=== PATIENT | male | born 1995 | race Caucasian/White ===

== ENCOUNTER 2016-12-16 20:40 | Inpatient (IN) | payer BC, OTHER ==
[~2016-12-16] VITALS: Ht 182.9 cm; Wt 99.8 kg
[2016-12-16] MEDS ORDERED: MIRALAX 17 GM POWD.PACK PO PRN (22:15)
[2016-12-16] MEDS ORDERED: LORAZEPAM 2 MG/1 ML VIAL IM PRN (22:15)
[2016-12-16] MEDS ORDERED: ONDANSETRON 4 MG/2 ML VIAL IM PRN (22:15)
[2016-12-16] MEDS ORDERED: MAGNESIUM HYDROXIDE 30 ML LIQUID UDC PO PRN (22:15)
[2016-12-16] MEDS ORDERED: ACETAMINOPHEN 325 MG TABLET PO PRN (22:15)
[2016-12-16] MEDS ORDERED: LOPERAMIDE HCL 2 MG CAPSULE PO PRN ×2 (22:15)
[2016-12-16] MEDS ORDERED: LORAZEPAM 1 MG TABLET PO PRN ×2 (22:15)
[2016-12-16] MEDS ORDERED: MAG HYDROX/AL HYDROX/SIMETH 30 ML LIQUID UDC PO PRN (22:15)
[2016-12-16] MEDS ORDERED: THIAMINE HCL 200 MG/2 ML VIAL IM ONE (22:15)
[2016-12-16] MEDS ORDERED: ONDANSETRON ODT 4 MG TAB.RAPDIS SL PRN (22:15)
--- NOTE | 2016-12-16 22:30 | NUR ---
Intake Notes Px is a 21 y/o male, seen at intake, AAOx4, no SOB. Px appears anxious, depressed and withdrawn. Discussed with patient the admission policies of the unit. Patient is coherent and able to respond to questions appropriately. Px has NKA, and on regular diet. Px is ambulatory with steady gait. Vital signs taken and as follows: BP: 146/78, P: 117, R: 18, O2: 95%, T: 97.3. Px has mild H/A. Px verbalized understanding of instructions and teachings regarding disposal of narcotic and other controlled home medications, unit protocols such as taking of vital signs Q4H and handling and disposal of contraband. We'll continue with admission upon pxs arrival on the unit.
--- NOTE | 2016-12-16 23:00 | NUR ---
Admission Notes Px is a 21 y/o male admitted on 12/16/16 for ETOH dependence, arrived on the unit at 2241. Skin assessment done, no contraband found and skin is intact. Just a few pimple like papules on chest. Px has NKA, denies history of seizures. Px was able to provide UDS. Upon admission CIWA 10, BP: 150/89, P: 106, R: 18, O2: 95%, T: 98.2, PA: 0. Weight 220, height 6 feet. Px reports he does not have a PCP, smokes 1 pack of cigarettes daily. Had a surgical operation on sinus area, 3 weeks ago ( deviated septum). Px is able to understand and respond to all questions pertaining to his hospitalization. Substance Abuse History is as follows: 1. ETOH- Vodka 750 ml daily for 3 weeks, started drinking since 13 y/o. Last drink was 12/16/2016 Treatment history: 1. [place]- June 2015, 2. [place] February 2016 3. [place] April 2016 Pxs longest sober period was 3 months from August to November 2016. PMHx: Anxiety, depression, Narcolepsy, HTN, ear infection, and eating disorder. Px denies any hx of seizures. Upon assessment, px is AAOx4, but moderately intoxicated, presents with anxiety, depression, withdrawn and skin is flushed. Respirations are even and unlabored. Denies SOB and chest pain. Bowel sounds active x 4, abdomen soft. PERRLA. Skin intact, no open wounds noted. Px denies SI/HI. Educational information provided and left at bedside. Px oriented to room and encouraged to notify staff with any concerns. Safety measures in place. Call light within reach, side rails up x 2, bed locked and in low position. We'll continue to monitor.
[2016-12-16] MEDS ORDERED: LORAZEPAM 1 MG TABLET PO ONE (23:50)
--- NOTE | 2016-12-16 23:50 | NUR ---
Ativan Non-admin Px is moderately intoxicated. Anxiety is on the mild to moderate side. Last intake of Vodka 750 ml is at 2200, today 12/16/2016. Ativan is not given. We'll continue to monitor. Addendum: 12/17/16 at 0234 by BONIFACIO JEFFRIES RN % ethyl alcohol is .25
[2016-12-17] VITALS (7 sets, daily range): BP systolic 113–147; BP diastolic 60–96
[2016-12-17] MEDS ORDERED: FLUT16SP BNOSTRILS (00:02)
[2016-12-17] MEDS ORDERED: VENL150C58 PO (00:02)
[2016-12-17] MEDS ORDERED: GABA600T2 PO (00:02)
--- NOTE | 2016-12-17 00:17 | NUR ---
PRN Zofran Px complained of nausea without emesis. Zofran 4 mg/ tab, 1 tab given PO as PRN med. Nausea improved after 30 mins of administration of med. We'll continue to monitor.
[2016-12-17 00:24] LABS: BASOPHILS # (AUTO) 0.1 K/uL (0.0-8.0); BASOPHILS % (AUTO) 0.9 % (0.0-2.0); EOSINOPHILS # (AUTO) 0.2 K/uL (0.0-0.7); EOSINOPHILS % (AUTO) 2.2 % (0.0-7.0); LYMPHOCYTES # (AUTO) 2.7 K/UL (0.8-4.8); LYMPHOCYTES % (AUTO) 31.1 % (20.5-51.5); MEAN CORPUSCULAR HEMOGLOBIN 29.8 UUG (27.0-31.0); MEAN CORPUSCULAR HGB CONC 33 g/dL (32.0-37.0); MEAN CORPUSCULAR VOLUME 89.5 FL (82.0-92.0); MONOCYTES # (AUTO) 0.4 K/UL (0.1-1.30); MONOCYTES % (AUTO) 4.6 % (0.0-11.0); NEUTROPHILS # (AUTO) 5.3 K/UL (1.8-8.9); NEUTROPHILS % (AUTO) 61.2 % (38.5-71.5); PLATELET COUNT (AUTO) 391 K/UL (150-450); WHITE BLOOD COUNT (AUTO) 8.7 K/UL (4.0-11.2)
[2016-12-17] MEDS ORDERED: ONDANSETRON ODT 4 MG TAB.RAPDIS ONE (00:29)
[2016-12-17 00:34] LABS: *AMPHETAMINE, URINE NEGATIVE (NEGATIVE); *BARBITURATE, URINE NEGATIVE (NEGATIVE); *CANNABINOID, URINE NEGATIVE (NEGATIVE); *COCCAINE, URINE NEGATIVE (NEGATIVE); *OPIATE, URINE NEGATIVE (NEGATIVE); *PHENCYCLIDINE SCREEN,URINE NEGATIVE (NEGATIVE)
[2016-12-17 00:45] LABS: BILIRUBIN,TOTAL 0.2 mg/dL (0.2-1.0); CREATININE 0.8 mg/dL (0.6-1.3); MAGNESIUM 1.9 mg/dL (1.8-2.4); POTASSIUM 3.6 mmol/L (3.5-5.1); TOTAL PROTEIN, SERUM 8.2 g/dL (6.4-8.2)
--- NOTE | 2016-12-17 04:00 | NUR ---
CIWA deferred CIWA deferred due to the px is sleeping, to assess if the px is awake per doctor's order. We'll continue to monitor.
--- NOTE | 2016-12-17 07:02 | NUR ---
End of Shift Notes 21 y/o male admitted on 12/16/16 for ETOH dependence. Px has NKA, on regular diet and wishes to be on Full Code. A&Ox4. Respirations are even and unlabored. Denies SOB and chest pain. Px complained of nausea without emesis. Zofran 4 mg/ tab, 1 tab given PO as PRN med. Nausea improved after 30 mins of administration of med. Oral intake of 500 ml, voided 1x, no BM. Slept 5.5 hrs. Last CIWA 10 at 0000. Safety measures in place. Call light within reach, side rails up x 2, bed locked and in low position. We'll continue to monitor.
--- NOTE | 2016-12-17 07:40 | NUR ---
START OF SHIFT NOTE Received report from night nurse,21 year old male admitted for ETOH dependence. Patient reported PMH of Anxiety,depression, Narcolepsy, HTN, ear infection, and eating disorder, patient denies any history of seizures. Per endorsement pt was c/o of nausea and received PRN Zofran effective per night nurse, pt's last CIWA score was 10, and slept for 5 hours. Patient received awake, alert and oriented x4, Educated patient regarding plan of care for the day and medication regimen with good verbal understanding. Safety measures in place. call light with in reach, will continue to monitor.
[2016-12-17] MEDS ORDERED: TUBERCULIN,PURIF.PROT.DERIV. 5 TU/0.1 ML TEST ID ONE (09:00)
[2016-12-17] MEDS: FOLIC ACID 1 MG TABLET PO SCH (09:00)
[2016-12-17] MEDS: MULTIVITAMINS,THERAPEUTIC TABLET PO SCH (09:00)
[2016-12-17] MEDS: THIAMINE HCL 100 MG TABLET PO SCH (09:00)
[2016-12-17] MEDS ORDERED: LORAZEPAM 1 MG TABLET PO SCH (09:00)
[2016-12-17] MEDS ORDERED: FLUTICASONE PROPIONATE NASAL SPRAY NS PRN (11:45)
[2016-12-17] MEDS: LORAZEPAM 1 MG TABLET PO SCH ×3 (12:03→20:32)
[2016-12-17] MEDS: IBUPROFEN 600 MG TABLET PO PRN ×2 (12:35→20:31)
--- NOTE | 2016-12-17 12:35 | NUR ---
PRN MOTRIN Patient c/o of body aches 5/10, PRN Motrin 600mg 1 tab Po given as ordered. Will cont to monitor and reassess.
--- NOTE | 2016-12-17 13:35 | NUR ---
MOTRIN REASSESSMENT Per patient medication was effective in controlling body aches pain decreased to 2/10.
[2016-12-17] MEDS: GABAPENTIN 300 MG CAPSULE PO SCH ×2 (15:02→20:31)
[2016-12-17] MEDS: VENLAFAXINE XR 150 MG CAP.SR.24H PO SCH (15:03)
--- NOTE | 2016-12-17 19:07 | NUR ---
END OF SHIFT NOTE Patient is alert oriented x4. Patient is a 32 year old male admitted ETOH dependence. Patient was placed on 5 day Ativan taper tolerating well. Patient reported PMH of Anxiety, depression, Narcolepsy, HTN, ear infection and eating disorder, patient denies any history of seizures. Patient received PRN Motrin 600mg Po during shift noted to be effective. Vital signs remained WNL. Patient remained compliant with treatment plan and medication regime. Medications were effective in reducing withdrawal symptoms. Last CIWA score noted 6, at 1600. All safety measures in place, Call light within reach. Patient endorsed to night nurse in stable condition.
--- NOTE | 2016-12-17 19:30 | NUR ---
START OF SHIFT Pt is a 21 y/o male admitted on 12/16/16 for ETOH dependence. Pt was dependent on 750 ml vodka dialy for 3 weeks. Pt is full code, NKA, fall/seizure precautions. No reported seizure hx. Pt reports PMH of anxiety, depression, eating disorder, narcolepsy and HTN. Pt is on a 5 day Ativan taper that started today, tolerating well. Upon assessment pt is laying in bed watching TV and eating and presents with anxiety, paresthesias in hands, agitation, fine tremors, difficulty concentrating, headache 6/10, decreased appetite, chills, occasional sense of panic, dysphoria and anhedonia. Respirations 16, even and unlabored. Denies N/V/D. Denies chest pain or SOB. Medications due. Safety measures in place. Call light within reach. Will continue to monitor.
--- NOTE | 2016-12-17 20:31 | NUR ---
PRN MOTRIN AND CLONIDINE ADMINISTRATION Pt reports headache 07/15. BP 147/96 HR 106, PRN Clonidine administered per orders. Safety measures in place. Call light within reach. Will continue to monitor.
[2016-12-17] MEDS: CLONIDINE HCL 0.1 MG TABLET PO PRN (20:36)
--- NOTE | 2016-12-17 21:31 | NUR ---
PRN MOTRIN AND CLONIDINE REASSESSMENT Pt is laying in bed with eyes closed. BP 123/68 HR 78. Safety measures in place. Call light within reach. Will continue to monitor.
[2016-12-18] VITALS: BP 114/63
--- NOTE | 2016-12-18 | NUR ---
CIWA DEFERRED Pt is laying in bed with eyes closed, CIWA deferred, to be assessed when pt is fully awake per orders. Respirations 16, even and unlabored. Safety measures in place. Call light within reach. Will continue to monitor.
[2016-12-18 04:00] VITALS: BP 116/52
--- NOTE | 2016-12-18 07:03 | NUR ---
END OF SHIFT Pt is a 21 y/o male admitted on 12/16/16 for ETOH dependence. Pt was dependent on 750 ml vodka dialy for 3 weeks. Pt is full code, NKA, fall/seizure precautions. No reported seizure hx. Pt reports PMH of anxiety, depression, eating disorder, narcolepsy and HTN. Pt is on a 5 day Ativan taper that started 12/17/16, tolerating well.Pt presented with anxiety, paresthesias in the hands, agitation, fine tremors, difficulty concentrating, headache /10, decreased appetite, chills, occasional sense of panic, dysphoria and anhedonia. Scheduled medications and PRN Motrin and Clonidine administered, effective in S/S of withdrawal as verbalized by pt. Last CIWA 13 at 1999. Pt slept 9 hours. Intake 750 ml, void x 1, stool x 1. Safety measures in place. Call light within reach. Pts needs have been met. Endorsed to day shift nurse.
--- NOTE | 2016-12-18 07:50 | NUR ---
START OF SHIFT NOTE Received report from night nurse, 21 year old male admitted for ETOH dependence. Patient reported PMH of Anxiety,depression, Narcolepsy, HTN, ear infection, and eating disorder, patient denies any history of seizures. Per endorsement pt received PRN Motrin/Clonidine effective per night nurse, pt's last CIWA score was 13 , and slept for 9 hours. Patient received awake, alert and oriented x4, Educated patient regarding plan of care for the day and medication regimen with good verbal understanding. Safety measures in place. call light with in reach, will continue to monitor.
[2016-12-18 08:00] VITALS: BP 133/78
[2016-12-18] MEDS: MULTIVITAMINS,THERAPEUTIC TABLET PO SCH (08:45)
[2016-12-18] MEDS: VENLAFAXINE XR 150 MG CAP.SR.24H PO SCH (08:45)
[2016-12-18] MEDS: THIAMINE HCL 100 MG TABLET PO SCH (08:45)
[2016-12-18] MEDS: FOLIC ACID 1 MG TABLET PO SCH (08:45)
[2016-12-18] MEDS: LORAZEPAM 1 MG TABLET PO SCH ×3 (08:45→20:10)
[2016-12-18] MEDS: GABAPENTIN 300 MG CAPSULE PO SCH ×3 (08:45→20:10)
[2016-12-18] MEDS ORDERED: INFLUENZA VACCINE 2017-2018 0.5 ML DISP.SYRIN IM ONE (09:00)
[2016-12-18] MEDS ORDERED: LORAZEPAM 1 MG TABLET PO SCH (09:00)
[2016-12-18] MEDS ORDERED: PNEUMOCOCCAL 23-VAL P-SAC VAC 0.5 ML VIAL IM ONE (09:00)
[2016-12-18 10:07] LABS: HEPATITIS B SURFACE AG Negative (Negative)
[2016-12-18 12:00] VITALS: BP 119/80
[2016-12-18 16:00] VITALS: BP 135/68
--- NOTE | 2016-12-18 19:06 | NUR ---
END OF SHIFT NOTE Patient is alert oriented x4. Patient is a 32 year old male admitted ETOH dependence. Patient cont with 5 day Ativan taper tolerating well. Patient reported PMH of Anxiety, depression, Narcolepsy, HTN, ear infection and eating disorder, patient denies any history of seizures. Patient did not received any PRN during shift. Vital signs remained WNL. Patient remained compliant with treatment plan and medication regime. Medications were effective in reducing withdrawal symptoms. Last CIWA score noted 6, at 1600. All safety measures in place, Call light within reach. Patient endorsed to night nurse in stable condition.
--- NOTE | 2016-12-18 19:06 | NUR ---
START OF SHIFT NOTE: Patient is a 21 year old male admitted to [facility] on 12/16/2016 for ETOH/Alcohol dependence. Patient is continuing 5 Day Ativan Taper which tolerated well without ASE. Patient remains compliant with treatment, medications, and diet regime. Patient reports NKA, Regular Diet. Patient is on Full Code, Fall and Seizures Precautions. Patient denies History of Seizure. PMH: Anxiety, Depression, HTN, Narcolepsy, Ear Infection, Eating disorder, Alcohol Abuse disorder. Past Surgical History: Nasal Septum Deviation (Operated Surgically 3 weeks ago). Patient reports Substance Use: "ETOH/Alcohol PO: "Vodka 750 ml every day for 3 weeks. Last intake 750 ml on 12/16/2016. Patient reports Alcohol drinking since 2008". Patient reports Treatment History: 1. "[place]- June 2015", 2. "[place] February 2016", 3. "[place] April 2016". Upon endorsement, patient is in his room alert and oriented with stable gait. VS: T:98.4, HR:91, RA O2SAT:96%, RR:18, pain level/Body Aches: "6/10". CIWA 7. The patient presented with anxiety, agitation, nervousness, tremors that can be felt, diaphoresis, restless legs, body aches, and fatigue. Patient denies SI/HI. Respirations are unlabored and even. Patient denies SOB and chest pain. Lungs Sounds are clear bilaterally. Bowel Sounds active in all x4 quadrants. Abdomen is soft, and non-tender. PERRLA, brisk capillary refill, business line controller equal and strong. Skin is intact, warm and dry to touch. Encouraged to fluids intake as tolerated. Encouraged to attending groups activities. All needs met. Safety measures on place. Call light within reach, bed in lowest position, and locked, padded rails up bilaterally. Patient endorsed by day shift nurse. Report received. Will continue to monitor closely.
[2016-12-18 20:00] VITALS: BP 118/67
[2016-12-18] MEDS: IBUPROFEN 600 MG TABLET PO PRN (20:09)
--- NOTE | 2016-12-18 20:09 | NUR ---
PRN MOTRIN 600 MG 1 TAB. PO ADMINISTRATION Patient c/o Generalized body aches. Patient reports pain level "9/10"and asked aid. PRN Motrin 600 mg 1 tab. PO administrated as ordered with full glass of water. Patient tolerated well. All needs met. Safety measures on place. Call light within reach, bed in lowest position and locked, padded rails up bilaterally rails up bilaterally. Will continue to monitor closely.
[2016-12-18] MEDS: diphenhydrAMINE 50 MG CAPSULE PO PRN (21:01)
--- NOTE | 2016-12-18 21:01 | NUR ---
PRN BENADRYL 50 MG 1 CAP PO ADMINISTRATION Patient c/o insomnia. PRN Benadryl 50 mg 1 capsule PO for insomnia administrated with full glass of water as ordered. Patient tolerated well. All needs met. Safety measures on place. Call light within reach, bed in lowest position and locked, padded rails up bilaterally rails up bilaterally. Will continue to monitor closely.
--- NOTE | 2016-12-18 21:09 | NUR ---
RE-ASSESSMENT Patient reports PRN Motrin 600 mg 1 tab. PO administrated @2008 was effective. Pain level decreased from "6 to 2/". All needs met. Safety measures on place. Call light within reach, bed in lowest position and locked, padded rails up bilaterally rails up bilaterally. Will continue to monitor closely.
--- NOTE | 2016-12-18 22:01 | NUR ---
RE-ASSESSMENT Patient is sleeping. Respirations even and unlabored. RR 15. PRN Benadryl 50 mg 1 capsule PO for insomnia administrated @2100 was effective. All needs met. Safety measures on place. Call light within reach, bed in lowest position and locked, padded rails up bilaterally rails up bilaterally. Will continue to monitor closely.
[2016-12-19] VITALS: BP 126/65
[2016-12-19 04:00] VITALS: BP 114/68
[2016-12-19] MEDS: CLONIDINE HCL 0.1 MG TABLET PO PRN ×2 (04:30→20:37)
--- NOTE | 2016-12-19 04:30 | NUR ---
PRN CLONIDINE 0.1 MG 1 TAB PO ADMINISTRATION Patient c/o increased anxiety. BP:114/68, CIWA 5. PRN Clonidine 0.1 mg 1 tab. PO administrated with full glass of water as ordered. Patient tolerated well. All needs met. Safety measures on place. Call light within reach, bed in lowest position and locked, padded rails up bilaterally rails up bilaterally. Will continue to monitor closely.
--- NOTE | 2016-12-19 05:30 | NUR ---
RE-ASSESSMENT Patient is sleeping. Respirations even and unlabored. RR 16. PRN Clonidine 0.1 mg 1 tab. PO administrated @0430 for anxiety was effective. All needs met. Safety measures on place. Call light within reach, bed in lowest position and locked, padded rails up bilaterally rails up bilaterally. Will continue to monitor closely.
--- NOTE | 2016-12-19 06:56 | NUR ---
END OF SHIFT NOTE: Patient is a 21 year old male admitted to [facility] on 12/16/2016 for ETOH/Alcohol dependence. Patient is continuing 5 Day Ativan Taper which tolerated well without ASE. Patient remains compliant with treatment, medications, and diet regime. Patient reports NKA, Regular Diet. Patient is on Full Code, Fall and Seizures Precautions. Patient denies History of Seizure. PMH: Anxiety, Depression, HTN, Narcolepsy, Ear Infection, Eating disorder, Alcohol Abuse disorder. Past Surgical History: Nasal Septum Deviation (Operated Surgically 3 weeks ago). Patient reports Substance Use: "ETOH/Alcohol PO: "Vodka 750 ml every day for 3 weeks. Last intake 750 ml on 12/16/2016. Patient reports Alcohol drinking since 2008". Patient reports Treatment History: "[place]- June 2015", "[place] February 2016", "[place] April 2016". Last CIWA 5 @0400. COWS/CIWA taken when patient's awake during night. Last VS @0400: T: 98.5, BP: 114/68, HR: 84, RR:16, RA O2Sat: 94%, pain level: "0/10". Patient denies SI/HI. Respirations unlabored and even. Skin is intact, warm and dry to touch. PRN Motrin 600 mg 1 tab. PO administrated@2009 for Generalized body aches"610", PRN Benadryl 50 mg 1 capsule PO administrated @210 for insomnia, and PRN Clonidine 0.1 mg 1 tab. PO administrated @0430 for anxiety were effective. Patient slept 8 hours, intake 500ml, voided x3, stool x1. Encouraged fluids intake as tolerated. Encouraged to attend groups activities. All needs met. Safety measures on place. Call light within reach, bed in lowest position and locked, padded rails up bilaterally. Patient endorsed to day shift nurse. Report given.
--- NOTE | 2016-12-19 07:49 | NUR ---
START OF SHIFT NOTE Received report from night nurse, 21 year old male admitted for ETOH dependence. Patient reported PMH of Anxiety,depression, Narcolepsy, HTN, ear infection, and eating disorder, patient denies any history of seizures. Per endorsement pt received PRN Motrin/Clonidine/Benadryl effective per night nurse, pt's last CIWA score was 5, and slept for 8 hours. Patient received awake, alert and oriented x4, Educated patient regarding plan of care for the day and medication regimen with good verbal understanding. Safety measures in place. call light with in reach, will continue to monitor.
[2016-12-19 08:00] VITALS: BP 118/72
[2016-12-19] MEDS: FOLIC ACID 1 MG TABLET PO SCH (08:29)
[2016-12-19] MEDS: VENLAFAXINE XR 150 MG CAP.SR.24H PO SCH (08:29)
[2016-12-19] MEDS: GABAPENTIN 300 MG CAPSULE PO SCH ×3 (08:29→20:36)
[2016-12-19] MEDS: MULTIVITAMINS,THERAPEUTIC TABLET PO SCH (08:29)
[2016-12-19] MEDS: THIAMINE HCL 100 MG TABLET PO SCH (08:29)
[2016-12-19] MEDS ORDERED: LORAZEPAM 1 MG TABLET PO SCH ×2 (09:00)
[2016-12-19] MEDS: IBUPROFEN 600 MG TABLET PO PRN (11:54)
--- NOTE | 2016-12-19 11:54 | NUR ---
PRN MOTRIN Patient c/o of body aches 5/10, PRN Motrin 600mg 1 tab Po given as ordered. Will cont to monitor and reassess.
[2016-12-19 12:00] VITALS: BP 137/71
--- NOTE | 2016-12-19 12:54 | NUR ---
MOTRIN REASSESSMENT Per patient medication was effective in controlling body aches pain decreased to 1/10.
[2016-12-19] MEDS: LORAZEPAM 1 MG TABLET PO SCH ×2 (14:12→20:36)
--- NOTE | 2016-12-19 14:37 | NUR ---
Client was prompted to attend group by therapist. Client related that he would not be attending group.
[2016-12-19 16:00] VITALS: BP 115/65
--- NOTE | 2016-12-19 18:59 | NUR ---
END OF SHIFT NOTE Patient is alert oriented x4. Patient is a 32 year old male admitted ETOH dependence. Patient cont with 5 day Ativan taper tolerating well. Patient reported PMH of Anxiety, depression, Narcolepsy, HTN, ear infection and eating disorder, patient denies any history of seizures. Patient received PRN Motrin 600mg for general body aches noted to be effective. Vital signs remained WNL. Patient remained compliant with treatment plan and medication regime. Medications were effective in reducing withdrawal symptoms. Last CIWA score noted 4, at 1600. All safety measures in place, Call light within reach. Patient endorsed to night nurse in stable condition.
--- NOTE | 2016-12-19 18:59 | NUR ---
START OF SHIFT NOTE: Patient is a 21 year old male admitted to [facility] on 12/16/2016 for ETOH/Alcohol dependence. Patient is continuing 5 Day Ativan Taper which tolerated well without ASE. Patient remains compliant with treatment, medications, and diet regime. Patient reports NKA, Regular Diet. Patient is on Full Code, Fall and Seizures Precautions. Patient denies History of Seizure. PMH: Anxiety, Depression, HTN, Narcolepsy, Ear Infection, Eating disorder, Alcohol Abuse disorder. Past Surgical History: Nasal Septum Deviation (Operated Surgically 3 weeks ago). Upon endorsement, patient is alert and oriented with stable gait. VSWNL. CIWA 5. Patient denies SI/HI. Respirations are unlabored and even. Patient denies SOB and chest pain. Lungs Sounds are clear bilaterally. Bowel Sounds active in all x4 quadrants. Abdomen is soft and non-tender. PERRLA, brisk capillary refill, beamer operator equal and strong. Skin is intact, warm and dry to touch. Encouraged to fluids intake as tolerated. Encouraged to attending groups activities. All needs met. Safety measures on place. Call light within reach, bed in lowest position, and locked, padded rails up bilaterally. Patient endorsed by day shift nurse. Report received. Will continue to monitor closely.
[2016-12-19 20:00] VITALS: BP 114/84
[2016-12-19] MEDS: diphenhydrAMINE 50 MG CAPSULE PO PRN (20:36)
--- NOTE | 2016-12-19 20:37 | NUR ---
PRN CLONIDINE 0.1 MG 1 TAB PO AND PRN BENADRYL 50 MG 1 CAP. PO ADMINISTRATION Patient c/o increased anxiety and insomnia. BP: 114/84, CIWA 5. PRN Clonidine 0.1 mg 1 tab. PO and PRN Benadryl 50 mg 1 cap. PO administrated with full glass of water as ordered. Patient tolerated well. All needs met. Safety measures on place. Call light within reach, bed in lowest position and locked, padded rails up bilaterally rails up bilaterally. Will continue to monitor closely.
--- NOTE | 2016-12-19 21:37 | NUR ---
RE-ASSESSMENT Patient is sleeping. Respirations even and unlabored. RR 17. PRN Clonidine 01.mg 1 tab. PO and PRN Benadryl 50 mg 1 capsule PO for insomnia administrated @2036 was effective. All needs met. Safety measures on place. Call light within reach, bed in lowest position and locked, padded rails up bilaterally rails up bilaterally. Will continue to monitor closely.
[2016-12-20] VITALS: BP_SYST 115; BP_SYST 128; BP_DIAS 61; BP_DIAS 65
[2016-12-20] MEDS: CLONIDINE HCL 0.1 MG TABLET PO PRN (03:57)
--- NOTE | 2016-12-20 03:57 | NUR ---
PRN CLONIDINE 0.1 MG 1 TAB PO ADMINISTRATION Patient c/o increased anxiety. PRN Clonidine 0.1 mg 1 tab. PO administrated with full glass of water as ordered. Patient tolerated well. All needs met. Safety measures on place. Call light within reach, bed in lowest position and locked, padded rails up bilaterally rails up bilaterally. Will continue to monitor closely.
[2016-12-20 04:00] VITALS: BP 137/60
--- NOTE | 2016-12-20 04:57 | NUR ---
RE-ASSESSMENT Patient is sleeping. Respirations even and unlabored. RR 16. PRN Clonidine 0.1mg 1 tab PO and PRN Clonidine 0.1 mg 1 tab. PO administrated @0357 was effective. All needs met. Safety measures on place. Call light within reach, bed in lowest position and locked, padded rails up bilaterally rails up bilaterally. Will continue to monitor closely.
--- NOTE | 2016-12-20 06:52 | NUR ---
END OF SHIFT NOTE: Patient is a 21 year old male admitted to [facility] on 12/16/2016 for ETOH/Alcohol dependence. Patient is continuing 5 Day Ativan Taper which tolerated well without ASE. Patient remains compliant with treatment, medications, and diet regime. Patient reports NKA, Regular Diet. Patient is on Full Code, Fall and Seizures Precautions. Patient denies History of Seizure. PMH: Anxiety, Depression, HTN, Narcolepsy, Ear Infection, Eating disorder, Alcohol Abuse disorder. Past Surgical History: Nasal Septum Deviation (Operated Surgically 3 weeks ago). Last CIWA 6 @0400. COWS/CIWA taken when patient's awake during night. Last VS @0400: T: 98.8, BP: 137/60, HR: 81, RR:16, RA O2Sat: 95%, Generalized body aches/pain level: "5/10". Patient denies SI/HI. Respirations unlabored and even. Skin is intact, warm and dry to touch. PRN Benadryl 50 mg 1 capsule PO administrated for insomnia, and PRN Clonidine 0.1 mg 1 tab. PO administrated X2 for anxiety were effective. Patient slept 8 hours, intake 1,350ml, voided x2. Encouraged fluids intake as tolerated. Encouraged to attend groups activities. All needs met. Safety measures on place. Call light within reach, bed in lowest position and locked, padded rails up bilaterally. Patient endorsed to day shift nurse. Report given.
--- NOTE | 2016-12-20 07:00 | NUR ---
Start of Shift Patient Received. Patient is in his room sleeping. Breathing even and non labored. No signs of pain or discomfort noted. Patient is a 21 year old male that was admitted on 12/16/16 for ETOH Dependence under the care of Dr. Banks. Patient verbalizes no known allergies, wishes to be full code, following a regular diet, placed on fall and seizure precautions, and skin noted intact. Past medical history of anxiety, depression, history of eating disorder, narcolepsy, HTN, history of ear infection, and surgical repair of nasal septum deviation. Per endorsement, patient was given PRN Benadryl and clonidine x2 with medications noted to be effective. Last noted CIWA 6 at 0400. All needs attended to promptly. Will continue plan of care as ordered.
[2016-12-20 08:55] VITALS: BP 142/75
[2016-12-20] MEDS: GABAPENTIN 300 MG CAPSULE PO SCH ×3 (08:56→20:08)
[2016-12-20] MEDS: VENLAFAXINE XR 150 MG CAP.SR.24H PO SCH (08:56)
[2016-12-20] MEDS: THIAMINE HCL 100 MG TABLET PO SCH (08:56)
[2016-12-20] MEDS: LORAZEPAM 1 MG TABLET PO SCH ×2 (08:56→20:08)
[2016-12-20] MEDS: FOLIC ACID 1 MG TABLET PO SCH (08:56)
[2016-12-20] MEDS: MULTIVITAMINS,THERAPEUTIC TABLET PO SCH (08:56)
[2016-12-20] MEDS ORDERED: LORAZEPAM 1 MG TABLET PO SCH ×2 (09:00)
[2016-12-20 12:24] VITALS: BP 111/56
[2016-12-20] MEDS: HYDROXYZINE PAMOATE 25 MG CAPSULE PO PRN ×2 (15:27→20:08)
--- NOTE | 2016-12-20 15:30 | NUR ---
PRN Medication Administration Patient verbalizing increased anxiety. CIWA 6. Relayed to MD with new orders for PRN Vistaril 25mg. Medication administered as per order. Will continue to monitor.
[2016-12-20 16:00] VITALS: BP 120/60
--- NOTE | 2016-12-20 16:20 | NUR ---
PRN Medication Reassessment patient noted in bed sleeping. Breathing even and non labored. No signs of pain or discomfort noted. Patient was given PRN Vistaril for increased anxiety. Medication noted to be effective. Will continue to monitor.
--- NOTE | 2016-12-20 17:01 | NUR ---
Therapist prompted client to attend daily group sessions. Client stated that he would not be attending at this time, and did not provide a reason.
--- NOTE | 2016-12-20 19:11 | NUR ---
START OF SHIFT NOTE: Patient is a 21 year old male admitted to [facility] on 12/16/2016 for ETOH/Alcohol dependence. Patient is continuing 5 Day Ativan Taper which tolerated well without ASE. Patient remains compliant with treatment, medications, and diet regime. Patient reports NKA, Regular Diet. Patient is on Full Code, Fall and Seizures Precautions. Patient denies History of Seizure. PMH: Anxiety, Depression, HTN, Narcolepsy, Ear Infection, Eating disorder, Alcohol Abuse disorder. Past Surgical History: Nasal Septum Deviation (Operated Surgically 3 weeks ago). Patient is alert and oriented with stable gait. VSWNL. CIWA 5. Patient denies SI/HI. Respirations are unlabored and even. Patient denies SOB and chest pain. Lungs Sounds are clear bilaterally. Bowel Sounds active in all x4 quadrants. Abdomen is soft and non-tender. PERRLA, brisk capillary refill, belting and webbing inspector equal and strong. Skin is intact, warm and dry to touch. Encouraged to fluids intake as tolerated. Encouraged to attending groups activities. All needs met. Safety measures on place. Call light within reach, bed in lowest position, and locked, padded rails up bilaterally. Patient endorsed by day shift nurse. Report received. Will continue to monitor closely.
--- NOTE | 2016-12-20 19:11 | NUR ---
End of Shift Patient is in his room, awake, alert and verbally responsive. Breathing even and non labored. No signs of pain or discomfort noted. Patient is a 21 year old male that was admitted on 12/16/16 for ETOH Dependence under the care of Dr. Banks. Patient verbalizes no known allergies, wishes to be full code, following a regular diet, placed on fall and seizure precautions, and skin noted intact. Past medical history of anxiety, depression, history of eating disorder, narcolepsy, HTN, history of ear infection, and surgical repair of nasal septum deviation. Patient was seen and evaluated by Dr. Banks with new order for PRN Vistaril 25mg. patient received one dose with medication noted to be effective. Patient also seen and evaluated by Dr. Amaro with new order for PRN Seroquel 50mg QHS for Sleep. Last noted CIWA 1. All needs attended to promptly. Will endorse to continue plan of care as ordered.
--- NOTE | 2016-12-20 20:08 | NUR ---
PRN VISTARIL 25 MG 1 CAP PO ADMINISTRATION Patient c/o increased anxiety. PRN Vistaril 25 mg 1 cap PO administrated with full glass of water as ordered. Patient tolerated well. All needs met. Safety measures on place. Call light within reach, bed in lowest position and locked, padded rails up bilaterally. Will continue to monitor closely.
[2016-12-20 20:54] VITALS: BP 145/83
--- NOTE | 2016-12-20 21:08 | NUR ---
RE-ASSESSMENT Patient is sleeping. Respirations even and unlabored. RR 15. PRN Vistaril 25 mg 1 cap PO administrated @2007 was effective. All needs met. Safety measures on place. Call light within reach, bed in lowest position and locked, padded rails up bilaterally rails up bilaterally. Will continue to monitor closely.
[2016-12-21] VITALS (7 sets, daily range): BP systolic 116–141; BP diastolic 63–86
[2016-12-21] MEDS: QUETIAPINE FUMARATE 25 MG TABLET PO PRN ×2 (00:43→22:23)
--- NOTE | 2016-12-21 00:43 | NUR ---
PRN SEROQUEL 50 MG 2 TAB PO ADMINISTRATION Patient c/o insomnia. PRN Seroquel 50 mg 2 tab PO administrated with full glass of water as ordered. Patient tolerated well. All needs met. Safety measures on place. Call light within reach, bed in lowest position and locked, padded rails up bilaterally rails up bilaterally. Will continue to monitor closely.
--- NOTE | 2016-12-21 01:43 | NUR ---
RE-ASSESSMENT Patient is sleeping. Respirations even and unlabored. RR 16. PRN Seroquel 50 mg 2 cap PO administrated or insomnia was effective. All needs met. Safety measures on place. Call light within reach, bed in lowest position and locked, padded rails up bilaterally rails up bilaterally. Will continue to monitor closely.
--- NOTE | 2016-12-21 07:15 | NUR ---
Start of Shift Notes: Received report from night nurse. Patient is in his/her room. Alert and verbally responsive. Oriented x 4. Able to make his/her needs known. Respirations even and unlabored. No SOB noted. Skin warm and moist to touch. Abdomen soft and non-distended. BS (+) in all 4 quadrants. No complains of N/V/D or constipation noted. Bladder non-distended. No complains of dysuria noted. Ambulatory ad dinorah with steady gait. Patient is a 21 year old male admitted for ETOH dependence who was placed on 5-day Ativan taper as ordered. Prior to admission, patient was using 750cc of Vodka daily since 13 years old. NKA. FULL CODE. Regular diet. On fall and seizure precautions. Educated patient on the current plan of care for the day and the medication regimen. Encouraged oral fluid intake and encouraged group participation to learn new skills to prevent relapse. Will continue to monitor closely throughout the day.
--- NOTE | 2016-12-21 07:53 | NUR ---
END OF SHIFT NOTE: Patient is a 21 year old male admitted to [facility] on 12/16/2016 for ETOH/Alcohol dependence. Patient is continuing 5 Day Ativan Taper which tolerated well without ASE. Patient remains compliant with treatment, medications, and diet regime. Patient reports NKA, Regular Diet. Patient is on Full Code, Fall and Seizures Precautions. Patient denies History of Seizure. PMH: Anxiety, Depression, HTN, Narcolepsy, Ear Infection, Eating disorder, Alcohol Abuse disorder. Past Surgical History: Nasal Septum Deviation (Operated Surgically 3 weeks ago). Last CIWA 3 @0400. COWS/CIWA taken when patient's awake during night. VSWNL. Patient denies SI/HI. Respirations unlabored and even. Skin is intact, warm and dry to touch. PRN Seroquel 50 mg 2 caps. PO administrated for insomnia was effective. Patient slept 8 hours, intake 1,350ml, voided x2. Encouraged fluids intake as tolerated. Encouraged to attend groups activities. All needs met. Safety measures on place. Call light within reach, bed in lowest position and locked, padded rails up bilaterally. Patient endorsed to day shift nurse. Report given.
[2016-12-21] MEDS: FOLIC ACID 1 MG TABLET PO SCH (08:48)
[2016-12-21] MEDS: VENLAFAXINE XR 150 MG CAP.SR.24H PO SCH (08:48)
[2016-12-21] MEDS: GABAPENTIN 300 MG CAPSULE PO SCH ×3 (08:48→22:22)
[2016-12-21] MEDS: THIAMINE HCL 100 MG TABLET PO SCH (08:48)
[2016-12-21] MEDS: MULTIVITAMINS,THERAPEUTIC TABLET PO SCH (08:48)
[2016-12-21] MEDS ORDERED: LORAZEPAM 1 MG TABLET PO SCH ×2 (09:00)
[2016-12-21] MEDS: HYDROXYZINE PAMOATE 25 MG CAPSULE PO PRN ×3 (09:27→22:22)
--- NOTE | 2016-12-21 09:27 | NUR ---
Vistaril 25 mg PO given: Patient complained of moderate anxiety. Non-pharmacological interventions provided but ineffective. Medicated patient with Vistaril 25 mg PO as ordered. Will monitor for effectiveness.
--- NOTE | 2016-12-21 10:27 | NUR ---
Re-assessment: Patient verbalizes relief from anxiety. PRN Vistaril effective.
--- NOTE | 2016-12-21 15:43 | NUR ---
Vistaril 25 mg PO given: Patient verbalized feeling anxious due to the discharge process. Reassurance provided but did not help. VS stable. Medicated patient with Vistaril 25 mg PO as ordered. Will monitor for effectiveness.
--- NOTE | 2016-12-21 16:43 | NUR ---
Re-assessment: Per patient, PRN Vistaril was effective in reducing anxiety.
--- NOTE | 2016-12-21 18:57 | NUR ---
End of Shift Notes: Patient completed his 5-day Ativan taper as ordered. No adverse reactions noted. Patient tolerated taper well. VS monitored closely. No significant abnormalities noted. Withdrawal symptoms were closely monitored. Initial CIWA 3, patient presented with anxiety, fatigue and sweats. Last CIWA 3. Medicated patient with Vistaril 25 mg PO as ordered for anxiety at 0927 and at 1543 with help after 1 hour. Per patient, Ativan has been effective in reducing patient's withdrawal symptoms. Patient will be discharging tomorrow. Requires encouragement to participate in group and activities. All needs met and attended. Will continue to monitor closely.
[2016-12-21] MEDS: CLONIDINE HCL 0.1 MG TABLET PO PRN (19:22)
--- NOTE | 2016-12-21 19:22 | NUR ---
PRN Clonidine: Upon rounds, pt c/o anxiety regarding his discharge tomorrow. BP 141/73. Pt stated he wanted something to help with his anxiety. 0.1mg Clonidine PO given as ordered for BP >140/70. Will continue to monitor.
--- NOTE | 2016-12-21 19:30 | NUR ---
Start of Shift Notes: Report received from day shift nurse. Pt is a 21M, admitted for ETOH Dependence on 12/16/16. Pt was lying in bed watching TV during the start of shift. Pt is AOx4 without s/s of acute distress. Pt is full code, on regular diet, and on fall precautions. Pt noted with NKA. Pt reports hx of Anxiety, Depression, Eating Disorder, Narcolepsy, HTN, Ear infections and Nasal Septum Deviation sx. Pt has completed 5-day Ativan taper and is scheduled to be discharged in the morning. Per day shift nurse, pt's last CIWA was 3 at 1600. Bed in lowest position. Side rails up x2. Call light functioning and within reach. All needs attended and met. Will continue to monitor.
--- NOTE | 2016-12-21 20:30 | NUR ---
PRN Clonidine Reassessment: BP 135/82. Pt stated some relief from anxiety. PRN Clonidine effective.
[2016-12-21] MEDS ORDERED: GABA600T2 PO (22:12)
[2016-12-21] MEDS ORDERED: HYDR-3895 PO (22:12)
[2016-12-21] MEDS ORDERED: IBUP-1955 PO (22:12)
[2016-12-21] MEDS ORDERED: QUET25TA PO (22:12)
--- NOTE | 2016-12-21 22:25 | NUR ---
PRN Vistaril, Maalox, and Seroquel: Pt c/o anxiety. Pt stated that he can't stop thinking about his discharge. Allowed pt to verbalized feelings. Pt requested medication to help with anxiety. Vistaril PRN given as ordered. Pt also c/o heartburn and requested sleep medication. Maalox PRN and Seroquel PRN given as ordered. Will continue to monitor.
--- NOTE | 2016-12-21 23:30 | NUR ---
PRN Vistaril, Maalox, and Seroquel Reassessment: Pt in bed lying down with eyes closed. Attempted to assess pt about PRN effectiveness but unable. Pt refused to be checked while asleep. Respirations even and unlabored. Will continue to monitor.
--- NOTE | 2016-12-22 | NUR ---
Vitals refused/COWS deferred: Pt in bed with eyes closed. Pt refused vitals to be taken at this time. Respirations even and unlabored. RR: 16. Call light functioning and within reach. All needs attended and met. Will continue to monitor. Addendum: 12/22/16 at 0638 by DONATO GARSIA RN Correction: CIWA scale was deferred, not COWS.
--- NOTE | 2016-12-22 04:00 | NUR ---
Vitals refused/CIWA deferred: Pt in bed with eyes closed. Pt refused vitals to be taken at this time. Respirations even and unlabored. RR: 16. Call light functioning and within reach. All needs attended and met. Will continue to monitor.
--- NOTE | 2016-12-22 06:43 | NUR ---
End of Shift Notes: Pt is 21M, admitted for ETOH Dependence on 12/16/16. Pt is full code, on regular diet, and on fall precautions. Pt noted with NKA. Pt reports hx of Anxiety, Depression, Eating Disorder, Narcolepsy, HTN, Ear infections and Nasal Septum Deviation sx. Pt has completed 5-day Ativan taper and is scheduled to be discharged today. Pt is compliant with plan of care. Pt slept for 6 hours. Respirations even and unlabored. Last CIWA score was 4 at 2000 last night. PRN Clonidine and PRN Vistaril given for anxiety/elevated BP which was effective. PRN Maalox given for heartburn. PRN Seroquel given for sleep. No N/V noted during the shift. Fall and Sz precautions observed. Bed in lowest position. Side rails up x2. Call light functioning and within reach. All needs attended and met. Will endorse to day shift nurse.
--- NOTE | 2016-12-22 07:30 | NUR ---
start of shift note: received pt from overnight caregiver nurse, pt is in stable condition at this time no s/s of pain or discomfort. pt is admitted to [facility] for ETOH withdrawal/dependence. pt's last ciwa is 3. pt is set to discharge today. will assist pt in discharging and will continue to monitor pt for any changes
[2016-12-22] MEDS: THIAMINE HCL 100 MG TABLET PO SCH (08:22)
[2016-12-22] MEDS: MULTIVITAMINS,THERAPEUTIC TABLET PO SCH (08:22)
[2016-12-22] MEDS: FOLIC ACID 1 MG TABLET PO SCH (08:22)
[2016-12-22] MEDS: GABAPENTIN 300 MG CAPSULE PO SCH (08:22)
[2016-12-22] MEDS: VENLAFAXINE XR 150 MG CAP.SR.24H PO SCH (08:22)
--- NOTE | 2016-12-22 09:30 | NUR ---
discharge note: pt left the unit in stable condition no s/s of pain or discomfort or any withdrawal symptoms. pt teaching administered and pt verbalized understanding
== END 2016-12-22 09:28 | disposition other institution (70) | DRG 895 ==
LOC: SRC 21:57
PROVIDERS: ADMIT Internal Medicine; ATTEND Internal Medicine
PROC: HZ31ZZZ Individual Counseling for Substance Abuse Treatment, Behavioral (ICD-10-PCS; principal; 2016-12-16)
PROC: HZ2ZZZZ Detoxification Services for Substance Abuse Treatment (ICD-10-PCS; principal; 2016-12-16)
DX: F10.232 Alcohol dependence with withdrawal with perceptual disturbance (principal); E87.3 Alkalosis; I15.9 Secondary hypertension, unspecified; E86.0 Dehydration; Y90.9 Presence of alcohol in blood, level not specified; F17.210 Nicotine dependence, cigarettes, uncomplicated; Z79.899 Other long term (current) drug therapy; G47.419 Narcolepsy without cataplexy; F32.9 Major depressive disorder, single episode, unspecified; F41.9 Anxiety disorder, unspecified; Z82.49 Family history of ischemic heart disease and other diseases of the circulatory system; Z81.1 Family history of alcohol abuse and dependence; Z59.8 Other problems related to housing and economic circumstances; G47.00 Insomnia, unspecified; H55.09 Other forms of nystagmus; R00.0 Tachycardia, unspecified
CPT/HCPCS: 36415; 80307; 83735; 85025; 86580; 86592; 86705; 86803; 87340; 87806; 90686; 90732; A4663; G0480; J3411; Q0162; Q0163